=== PATIENT | female | born 1960 | race Caucasian/White ===

== ENCOUNTER 2024-09-08 05:24 | Inpatient (IN) | payer MEDICARE ==
[2024-09-08 06:08] LABS: #Basophils 0.03 10x3/uL (0.0-0.2); #Eosinophils 0.28 10x3/uL (0.0-0.7); #Monocytes 0.41 10x3/uL (0.11-0.59); #Neutrophils 4.88 10x3/uL (1.40-6.50); %Basophils 0.4 % (0.0-1.0); %Eosinophils 3.9 % (0.0-10.0); %Lymphocytes 21.6 % (21.0-51.0); %Monocytes 5.7 % (0.0-10.0); %Neutrophils 68.1 % (42.0-75.0); Hematocrit 43.7 % (36.0-47.0); Hemoglobin 15.0 g/dL (12.0-16.0); Mean Corpuscular Hemoglobin 32.0 pg (27.0-31.0); Mean Corpuscular Volume 93.2 fL (78.0-98.0); Platelet Count 210 10x3/uL (130-400); Red Blood Cell (RBC) Count 4.69 mill/uL (4.20-5.40); White Blood Cell (WBC) Count 7.17 10x3/uL (4.8-10.8)
[2024-09-08 06:22] LABS: ALT (SGPT) 24 U/L (Less than 34); AST (SGOT) 30 U/L (11-34); Albumin 4.0 g/dL (3.1-4.5); Alkaline Phosphatase 91 U/L (40-110); Anion Gap 13 mmol/L (10-20); BUN (Urea Nitrogen) 12 mg/dL (9.8-20.1); Bilirubin, Total 2.3 mg/dL (0.3-1.2); Calc. Creatinine Clearance 0 mL/min (70-130); Calcium 8.9 mg/dL (7.8-10.44); Carbon Dioxide 25 mmol/L (23-31); Chloride 104 mmol/L (98-107); Globulin 3.5 g/dL (2.4-3.5); Glucose 152 mg/dL (80-115); Potassium 3.9 mmol/L (3.5-5.1); Sodium 138 mmol/L (136-145)
[2024-09-08 06:27] LABS: Troponin I Less than 0.010 ng/mL (< 0.028)
[2024-09-08] MEDS ORDERED: diphenhydrAMINE 50 MG/ML VIAL ONE (07:02)
[2024-09-08] MEDS ORDERED: Famotidine/PF 20 mg/2ml Vial ONE (07:02)
[2024-09-08] MEDS ORDERED: Acetaminophen 325 MG TAB ONE (09:40)
[2024-09-08 11:21] LABS: Troponin I Less than 0.010 ng/mL (< 0.028)
[2024-09-08] MEDS ORDERED: Iopamidol-370 76% 500 ML MDV (1 ML CHARGE) ONE (12:39)
[2024-09-08] MEDS ORDERED: Nitroglycerin 0.4 MG TAB (25 Tab Bottle) SL PRN (13:17)
[2024-09-08] MEDS ORDERED: Senokot S 8.6-50 MG TAB PO PRN (13:19)
[2024-09-08 14:01] LABS: Troponin I Less than 0.010 ng/mL (< 0.028)
[2024-09-08 19:16] LABS: Troponin I Less than 0.010 ng/mL (< 0.028)
[2024-09-08] MEDS: Acetaminophen 500 MG TAB PO PRN (21:03)
[2024-09-08] MEDS: Apixaban 5 MG TAB PO SCH (21:03)
[2024-09-09] MEDS: Ondansetron PF 4 MG/2 ML Vial IVP PRN (00:42)
[2024-09-09] MEDS: Ketorolac Tromethamine 30 MG (1 mL) VIAL IVP SCH (03:07)
[2024-09-09] MEDS: Ondansetron PF 4 MG/2 ML Vial IVP SCH (03:07)
[2024-09-09 04:27] LABS: #Basophils Less than 0.03 10x3/uL (0.0-0.2); #Eosinophils Less than 0.03 10x3/uL (0.0-0.7); #Monocytes 0.29 10x3/uL (0.11-0.59); #Neutrophils 13.15 10x3/uL (1.40-6.50); %Basophils 0.1 % (0.0-1.0); %Eosinophils 0.0 % (0.0-10.0); %Lymphocytes 5.0 % (21.0-51.0); %Monocytes 2.0 % (0.0-10.0); %Neutrophils 92.5 % (42.0-75.0); Hematocrit 45.7 % (36.0-47.0); Hemoglobin 15.5 g/dL (12.0-16.0); Mean Corpuscular Hemoglobin 31.7 pg (27.0-31.0); Mean Corpuscular Volume 93.5 fL (78.0-98.0); Platelet Count 218 10x3/uL (130-400); Red Blood Cell (RBC) Count 4.89 mill/uL (4.20-5.40); White Blood Cell (WBC) Count 14.22 10x3/uL (4.8-10.8)
[2024-09-09 04:47] LABS: Troponin I Less than 0.010 ng/mL (< 0.028)
[2024-09-09 04:55] LABS: Anion Gap 18 mmol/L (10-20); BUN (Urea Nitrogen) 16 mg/dL (9.8-20.1); Calc. Creatinine Clearance 70 mL/min (70-130); Calcium 9.5 mg/dL (7.8-10.44); Carbon Dioxide 17 mmol/L (23-31); Cardiac Risk 3.3 (Less than 4.5); Chloride 103 mmol/L (98-107); Cholesterol 158 mg/dl (< 200 Desired); Glucose 308 mg/dL (80-115); HDL Cholesterol 48 mg/dL (>60 Neg Risk); LDL Cholesterol, Calculated 96 mg/dL; Magnesium 1.9 mg/dL (1.6-2.6); Potassium 4.4 mmol/L (3.5-5.1); Sodium 134 mmol/L (136-145); Triglycerides 70 mg/dL (Less than 150)
[2024-09-09] MEDS ORDERED: Enoxaparin 40 MG (0.4 mL) SYRINGE SC SCH ×2 (09:00)
[2024-09-09] MEDS: Aspirin Chewable 81 MG TAB PO SCH (10:21)
[2024-09-09] MEDS ORDERED: Dextrose 50% Abboject 50 ML SYRINGE SLOW IVP PRN (10:44)
[2024-09-09] MEDS ORDERED: Glucagon 1 MG/ML KIT IM PRN (10:44)
[2024-09-09 12:28] LABS: ALT (SGPT) 28 U/L (Less than 34); AST (SGOT) 21 U/L (11-34); Albumin 3.5 g/dL (3.1-4.5); Alkaline Phosphatase 88 U/L (40-110); Bilirubin, Direct 0.7 mg/dL (0.1-0.3); Bilirubin, Total 1.8 mg/dL (0.3-1.2)
[2024-09-09 15:55] LABS: ALT (SGPT) 29 U/L (Less than 34); AST (SGOT) 29 U/L (11-34); Albumin 3.6 g/dL (3.1-4.5); Alkaline Phosphatase 89 U/L (40-110); Anion Gap 17 mmol/L (10-20); BUN (Urea Nitrogen) 19 mg/dL (9.8-20.1); Bilirubin, Total 1.9 mg/dL (0.3-1.2); Calc. Creatinine Clearance 65 mL/min (70-130); Calcium 9.0 mg/dL (7.8-10.44); Carbon Dioxide 20 mmol/L (23-31); Chloride 102 mmol/L (98-107); Globulin 3.7 g/dL (2.4-3.5); Glucose 322 mg/dL (80-115); Potassium 3.8 mmol/L (3.5-5.1); Sodium 135 mmol/L (136-145)
[2024-09-10 01:20] LABS: #Basophils 0.03 10x3/uL (0.0-0.2); #Eosinophils Less than 0.03 10x3/uL (0.0-0.7); #Monocytes 0.55 10x3/uL (0.11-0.59); #Neutrophils 15.83 10x3/uL (1.40-6.50); %Basophils 0.2 % (0.0-1.0); %Eosinophils 0.0 % (0.0-10.0); %Lymphocytes 4.7 % (21.0-51.0); %Monocytes 3.2 % (0.0-10.0); %Neutrophils 91.3 % (42.0-75.0); Hematocrit 42.2 % (36.0-47.0); Hemoglobin 14.5 g/dL (12.0-16.0); Mean Corpuscular Hemoglobin 31.7 pg (27.0-31.0); Mean Corpuscular Volume 92.1 fL (78.0-98.0); Platelet Count 162 10x3/uL (130-400); Red Blood Cell (RBC) Count 4.58 mill/uL (4.20-5.40); White Blood Cell (WBC) Count 17.33 10x3/uL (4.8-10.8)
[2024-09-10 01:36] LABS: Anion Gap 14 mmol/L (10-20); BUN (Urea Nitrogen) 19 mg/dL (9.8-20.1); Calc. Creatinine Clearance 68 mL/min (70-130); Calcium 8.5 mg/dL (7.8-10.44); Carbon Dioxide 21 mmol/L (23-31); Chloride 106 mmol/L (98-107); Glucose 285 mg/dL (80-115); Magnesium 1.9 mg/dL (1.6-2.6); Potassium 3.8 mmol/L (3.5-5.1); Sodium 137 mmol/L (136-145)
[2024-09-10] MEDS: Ketorolac Tromethamine 30 MG (1 mL) VIAL IVP SCH (02:15)
[2024-09-10] MEDS ORDERED: PROPOFOL 20 ML ONE (10:03)
[2024-09-10] MEDS ORDERED: fentaNYL PF 100 MCG/2 ML SYRINGE ONE (10:03)
[2024-09-10] MEDS ORDERED: Rocuronium Bromide 10 MG/ML (10ML VIAL) ONE (10:04)
[2024-09-10] MEDS ORDERED: Ondansetron PF 4 MG/2 ML Vial ONE (10:04)
[2024-09-10] MEDS ORDERED: SUGAMMADEX SODIUM 200 MG/2 ML VIAL ONE (10:04)
[2024-09-10] MEDS ORDERED: Lidocaine 1% PF 5 ML VIAL ONE ×2 (10:04→10:50)
[2024-09-10] MEDS ORDERED: CEFAZOLIN 2 GM VIAL ONE (10:20)
[2024-09-10] MEDS ORDERED: Bupivacaine 0.25% HCL 30 ML VIAL ONE (10:20)
[2024-09-10] MEDS ORDERED: PHENYLEPHRINE-NS 100 MCG/ML 10 ML SYRINGE ONE ×2 (10:56→11:27)
[2024-09-10] MEDS ORDERED: NOREPINEPHRINE 8 MG/250 ML-D5W 250 ML ONE (11:00)
[2024-09-10 14:16] LABS: Actual Bicarbonate (HCO3a) 18.9 mEq/L (22-28); Analyzer IN Cardio OR; Base Excess (BEa) -5.5 mEq/L (-2.0 to +3.0); CO2 Tension 34.1 mmHg (35.0-45.0); Calcium, Ionized (arterial) 1.15 mmol/L (1.12-1.30); Hematocrit-ABG 45 % (36.0-47.0); Hemoglobin (Hb) 15.2 g/dL (12.0-16.0); O2 Tension (PaO2), arterial 71.3 mmHg (> 80.0); Potassium - ABG Lab 3.79 mmol/L (3.70-5.30); pH, Arterial 7.362 (7.35-7.45)
[2024-09-10 14:17] LABS: ALV-art Gradient 599.075 mmHg (0-20); Puncture Site Right Radial artery
[2024-09-10] MEDS: Pantoprazole 40 MG VIAL IVP SCH (16:07)
[2024-09-11 04:55] LABS: Hematocrit 38.6 % (36.0-47.0); Hemoglobin 13.0 g/dL (12.0-16.0); Mean Corpuscular Hemoglobin 32.0 pg (27.0-31.0); Mean Corpuscular Volume 95.1 fL (78.0-98.0); Platelet Count 135 10x3/uL (130-400); Red Blood Cell (RBC) Count 4.06 mill/uL (4.20-5.40); White Blood Cell (WBC) Count 10.05 10x3/uL (4.8-10.8)
[2024-09-11 05:13] LABS: ALT (SGPT) 33 U/L (Less than 34); AST (SGOT) 24 U/L (11-34); Albumin 2.4 g/dL (3.1-4.5); Alkaline Phosphatase 89 U/L (40-110); Anion Gap 10 mmol/L (10-20); BUN (Urea Nitrogen) 15 mg/dL (9.8-20.1); Bilirubin, Total 1.2 mg/dL (0.3-1.2); Calc. Creatinine Clearance 116 mL/min (70-130); Calcium 8.2 mg/dL (7.8-10.44); Carbon Dioxide 21 mmol/L (23-31); Chloride 111 mmol/L (98-107); Globulin 3.5 g/dL (2.4-3.5); Glucose 249 mg/dL (80-115); Potassium 3.2 mmol/L (3.5-5.1); Sodium 139 mmol/L (136-145)
[2024-09-11 05:21] LABS: Anisocytosis SLIGHT = 6-15 cells HPF (0-5); Platelet Adequacy Comment Platelets Normal; Smudge Cells 1.0 %
[2024-09-11] MEDS ORDERED: Electrolyte Replacement Protocol 1 EACH FS SCH (05:45)
[2024-09-11] MEDS: Magnesium 2 GM/50 ML(in water) 2 GM in Premix 1 BAG IVPB SCH (07:49)
[2024-09-11] MEDS: Pantoprazole 40 MG VIAL IVP SCH (08:04)
[2024-09-11] MEDS: Apixaban 5 MG TAB PO SCH (08:04)
[2024-09-11] MEDS: Insulin NPH Human Isophane 100 UNITS/ML (10 ML VIAL) SC SCH (08:43)
[2024-09-11] MEDS ORDERED: Enoxaparin 40 MG (0.4 mL) SYRINGE SC SCH (09:00)
[2024-09-12] MEDS: Losartan 25 MG TAB PO SCH (09:38)
[2024-09-12] MEDS: HYDROcodone/Acetaminophen 7.5/325 mg Tablet PO PRN (14:21)
[2024-09-12] MEDS: Amoxicillin/Potassium Clav 875 MG TAB PO SCH (20:09)
[2024-09-13] MEDS: Lansoprazole 30 MG/10 ML UDCUP PO SCH (08:53)
[2024-09-13] MEDS: DULoxetine 30 MG CAP PO SCH (09:47)
[2024-09-13 14:14] LABS: ALT (SGPT) 24 U/L (Less than 34); AST (SGOT) 21 U/L (11-34); Albumin 2.2 g/dL (3.1-4.5); Alkaline Phosphatase 160 U/L (40-110); Anion Gap 14 mmol/L (10-20); BUN (Urea Nitrogen) 13 mg/dL (9.8-20.1); Bilirubin, Total 1.0 mg/dL (0.3-1.2); Calc. Creatinine Clearance 154 mL/min (70-130); Calcium 8.3 mg/dL (7.8-10.44); Carbon Dioxide 25 mmol/L (23-31); Chloride 105 mmol/L (98-107); Globulin 3.9 g/dL (2.4-3.5); Glucose 173 mg/dL (80-115); Potassium 3.7 mmol/L (3.5-5.1); Sodium 140 mmol/L (136-145)
[2024-09-13 14:44] VITALS: BMI 36.6
[2024-09-13] MEDS: Senokot 8.6 MG TAB PO PRN (20:06)
[2024-09-13] MEDS: Aspirin Chewable 81 MG TAB PO SCH (20:06)
[2024-09-13] MEDS: Cholecalciferol 1,000 UNITS (25 MCG) TAB PO SCH (20:06)
[2024-09-14 12:12] VITALS: BMI 36.6
[2024-09-14 12:29] VITALS: BP 129/82; TEMP 98.1
== END 2024-09-14 12:45 | disposition home or self-care (01) | DRG 853 ==
LOC: ERS 05:24 → ERHOLD 12:44 → OBS 14:38 → OBSVTOIN 09-09 15:27 → CCU 09-10 12:36 → IMCU/EMU 09-10 15:47 → MSONC 09-12 17:44
PROVIDERS: ADMIT Hospitalist; ATTEND Hospitalist
PROC: 0FT44ZZ Resection of Gallbladder, Percutaneous Endoscopic Approach (ICD-10-PCS; principal; 2024-09-10)
PROC: 3E03329 Introduction of Other Anti-infective into Peripheral Vein, Percutaneous Approach (ICD-10-PCS; 2024-09-10)
PROC: 5A0935A Assistance with Respiratory Ventilation, Less than 24 Consecutive Hours, High Flow/Velocity Cannula (ICD-10-PCS; 2024-09-10)
DX: A41.9 Sepsis, unspecified organism (principal); J96.01 Acute respiratory failure with hypoxia; K80.00 Calculus of gallbladder with acute cholecystitis without obstruction; K82.A1 Gangrene of gallbladder in cholecystitis; I10 Essential (primary) hypertension; E11.9 Type 2 diabetes mellitus without complications; G47.33 Obstructive sleep apnea (adult) (pediatric); Z79.899 Other long term (current) drug therapy
CPT/HCPCS: 36415; 36416; 36600; 71045; 71046; 71275; 74181; 76705; 78452; 80048; 80053; 80061; 80076; 82805; 83605; 83690; 83735; 84484; 85025; 88304; 93005; 93010; 93017; 94760; 94799; 96374; 96375; 96376; A9502; C1889; G0378; J0169; J0665; J1100; J1200; J1308; J1815; J1885; J2270; J2405; J2470; J2543; J2704; J2785; J2919; J3010; J3475; J7030; J7120; Q9967

== ENCOUNTER 2024-11-27 06:00 | Day surgery (SDC) | payer MEDICARE ==
[2024-11-26 10:43] VITALS: BMI 33.3
[2024-11-27] MEDS ORDERED: PROPOFOL 20 ML ONE ×2 (08:50→08:58)
[2024-11-27] MEDS ORDERED: Lidocaine 1% PF 5 ML VIAL ONE (08:50)
== END 2024-11-27 09:58 | disposition home or self-care (01) ==
LOC: SDC 06:00
PROVIDERS: ATTEND Internal Medicine
PROC: 0DBE8ZX Excision of Large Intestine, Via Natural or Artificial Opening Endoscopic, Diagnostic (ICD-10-PCS; principal; 2024-11-27)
DX: K64.4 Residual hemorrhoidal skin tags (principal); K64.8 Other hemorrhoids; Z87.59 Personal history of other complications of pregnancy, childbirth and the puerperium; Z90.89 Acquired absence of other organs; Z90.49 Acquired absence of other specified parts of digestive tract; Z98.890 Other specified postprocedural states; Z91.041 Radiographic dye allergy status; Z88.1 Allergy status to other antibiotic agents
CPT/HCPCS: 45380; J2704; 88305